=== PATIENT | female | born 1955 | race Caucasian/White ===

== ENCOUNTER → 2017-07-07 | Outpatient (CLI) | payer BC, SELFPAY | PROVIDERS: Visit Provider Nurse Practitioner Family | DX: M43.16 Spondylolisthesis, lumbar region (principal); R20.2 Paresthesia of skin | CPT/HCPCS: 72148; 76376 ==

== ENCOUNTER 2017-08-19 17:00 | Outpatient (RCR) | payer BC, SELFPAY | END 2017-08-19 17:01 | disposition home or self-care (01) | LOC: PT 17:00 | PROVIDERS: PCP Internal Medicine Adolescent Medicine; Visit Provider Neurological Surgery | DX: M43.10 Spondylolisthesis, site unspecified (principal) | CPT/HCPCS: 97010; 97014; 97035; 97110; G0283 ==

== ENCOUNTER → 2018-04-11 13:32 | Outpatient (POV) | payer BC, SELFPAY ==
[2018-04-11 14:02] VITALS: BP 155/88; PULSE 76; RESP 18; O2SAT 98
--- NOTE | 2018-04-12 08:39 | HMH.PMCON ---
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 Patient is done well with injections in the past. I will follow-up with the patient after her injection. The patient is asking for something for nerves prior to her injection. I discussed with her she can talk about this with Dr. Curry. This note was dictated using voice recognition software and may contain errors or omissions HPI - Data of Consult Consult date: 04/11/18 Requesting Physician: Neena Kwon APRN Primary Care Provider: Eran Zhang MD Family Provider: Referral Provider, - Consult Narrative Reason for consult: Back pain History of present illness: Ms. Mccurdy is a 63 year old female since today for consultation in regards to her low back pain. Patient has been seen by Dr. Chowdhury in the past and Dr. Camacho Sher. Patient had an injection by Dr. Tim Bill and had good relief with it. Patient had 90% relief for several months. Patient is continuing to do stretches. Patient present with an MRI showing pathology. Patient's tried and failed chiropractic therapy, physical therapy, anti-inflammatories. It is not on any anticoagulation therapy. 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 Gastrointestinal: no incontinence, normal bowel movements reported Genitourinary: no incontinence Musculoskeletal: back Pain, leg pain Psychiatric: normal mood/ affect Neurological: [denies weakness in extremities], [denies balance issues] Meds Home Medications Medication Instructions Recorded Confirmed Type cholecalciferol (vitamin D3) 2,000 2,000 unit PO DAILY 03/07/18 History unit capsule ibandronate 150 mg tablet mg PO 30 Days #1 03/07/18 History ibuprofen 200 mg capsule 200 mg PO QID PRN 03/07/18 History polyethylene glycol 3350 17 gram 17 g PO DAILY 03/07/18 History oral powder packet varicella-zoster glycoE [id number] mcg IM 1 Days #1 03/07/18 History adj(PF) 50 mcg/0.5 mL IM susp, kit Allergies Allergy/AdvReac Type Severity Reaction Status Date / Time epinephrine Allergy Nervousness, Verified 03/07/18 15:49 [From Xylocaine-Epinephrine] Heart racing lidocaine Allergy Nervousness, Verified 03/07/18 15:49 [From Xylocaine-Epinephrine] Heart racing From CELEXA Allergy Mild NERVOUS/SHA Uncoded 03/07/18 15:18 NESSA EXTREME 5000 TANNA Allergy Unknown NERVOUSNESS Uncoded 03/07/18 15:18 /MELISSA/N/V Objective Vital signs
--- NOTE | 2018-04-12 08:43 | P.CONS_ITS ---
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 Patient is done well with injections in the past. I will follow-up with the patient after her injection. The patient is asking for something for nerves prior to her injection. I discussed with her she can talk about this with Dr. Curry. This note was dictated using voice recognition software and may contain errors or omissions HPI - Data of Consult Consult date: 04/11/18 Requesting Physician: Neena Kwon APRN Primary Care Provider: Eran Zhang MD Family Provider: Referral Provider, - Consult Narrative Reason for consult: Back pain History of present illness: Ms. Mccurdy is a 63 year old female since today for consultation in regards to her low back pain. Patient has been seen by Dr. Chowdhury in the past and Dr. Camacho Sher. Patient had an injection by Dr. Tim Bill and had good relief with it. Patient had 90% relief for several months. Patient is continuing to do stretches. Patient present with an MRI showing pathology. Patient's tried and failed chiropractic therapy, physical therapy, anti-inflammatories. It is not on any anticoagulation therapy. 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 Gastrointestinal: no incontinence, normal bowel movements reported Genitourinary: no incontinence Musculoskeletal: back Pain, leg pain Psychiatric: normal mood/ affect Neurological: [denies weakness in extremities], [denies balance issues] Meds Home Medications Medication Instructions Recorded Confirmed Type cholecalciferol (vitamin D3) 2,000 2,000 unit PO DAILY 03/07/18 History unit capsule ibandronate 150 mg tablet mg PO 30 Days #1 03/07/18 History ibuprofen 200 mg capsule 200 mg PO QID PRN 03/07/18 History polyethylene glycol 3350 17 gram 17 g PO DAILY 03/07/18 History oral powder packet varicella-zoster glycoE [id number] mcg IM 1 Days #1 03/07/18 History
== END ==
PROVIDERS: PCP Internal Medicine Adolescent Medicine; Visit Provider Clinical Nurse Specialist Family Health
DX: M43.16 Spondylolisthesis, lumbar region (principal)
CPT/HCPCS: 99202

== ENCOUNTER → 2018-04-11 14:45 | Outpatient (POV) | payer BC, SELFPAY | PROVIDERS: PCP Internal Medicine Adolescent Medicine; Visit Provider Nurse Practitioner Acute Care | DX: Z00.00 Encounter for general adult medical examination without abnormal findings (principal) ==

== ENCOUNTER → 2018-04-18 09:32 | Outpatient (CLI) | payer BC, SELFPAY ==
--- NOTE | 2018-04-18 09:37 | US_ITS ---
US abdomen limited History:Right upper quadrant pain, epigastric pain, diarrhea Ordering Physician:Akanksha Duval Patient Age: 63 years Comparison: Findings: Pancreas:Unremarkable. No obvious mass or abnormal fluid collection. No ductal dilatation Liver:No focal liver lesions demonstrated. Homogeneous echogenicity. No intrahepatic biliary ductal dilatation evident. There is appropriate directional blood flow within a nondilated portal vein. Right Kidney:Unremarkable. Normal size and echogenicity. No hydronephrosis Gallbladder:No gallstones, gallbladder wall thickening, pericholecystic fluid, or biliary dilatation. Impression:Negative gallbladder/right upper quadrant ultrasound
== END ==
PROVIDERS: PCP Internal Medicine Adolescent Medicine; Visit Provider Nurse Practitioner Acute Care
DX: R10.11 Right upper quadrant pain (principal); R10.13 Epigastric pain
CPT/HCPCS: 76705

== ENCOUNTER → 2018-05-25 06:31 | Outpatient (CLI) | payer BC, SELFPAY ==
--- NOTE | 2018-05-25 06:33 | NM_ITS ---
SPECT MYOCARDIAL PERFUSION SCAN, REST AND STRESS: EXERCISE STRESS: [facility] REVIEW QGS EF AND WALL MOTION EVALUATION: QPS - PERFUSION EVALUATION: HISTORY: Chest pain, SOB, Palpitations, HTN PROCEDURE: Rest imaging performed after administration of9.90 millicuries Tc MIBI. Dose administered at6:40 a.m., with imaging thereafter. Stress imaging was then performed following6 minutes of exercise stress. The patient achieved a heart [id number] with projected heart rate of135 . Resting BP129/70 with stress 170/74. At maximum exercise stress,32.1 millicuries Tc MIBI administered at8:15 a.m. with [id number] minutes thereafter. FINDINGS: Perfusion Evaluation: The single slice spect images as well as the [facility] bull's-eye data summary were reviewed. Wall Motion and Ejection Fraction Evaluation: Gated SPECT review and analysis used to evaluate these features. There is a 75 % left ventricular ejection fraction. There seems to be good wall motion Stress images reveal mildly decreased activity throughout the anterior wall with mild improvement on resting images. Gated images calculated ejection fraction of 75% with normal wall motion. Exercise-induced EKG abnormalities were also present. IMPRESSION: Reversible ischemia throughout the anterior wall. Normal ejection fraction normal wall motion. High risk abnormal stress test because of the anterior wall involvement
--- NOTE | 2018-05-25 06:33 | CA_ITS ---
PROCEDURE: 2-D M-mode and color Doppler study INDICATIONS FOR THE TEST: Chest pain+ COPD Heart Murmur Tobacco Smoking Palpitations+ Fatigue Syncope Edema Hypertension Diabetes Mellitus Rheumatic Fever SOB+TIRADO Obesity Hyperlipidemia Family History HD+ Additional History DIZZINESS PATIENT INFORMATION HEIGHT:63 WEIGHT:174 GENDER: Female B/P:148/86 2-D/M-MODE INTERPRETATION: 2-D MEASUREMENTS OBSERVED VALUES IN CMS Right Ventricular Dimension (RVDd) 2.1 Interventricular Septum (Thickness)(IVsd) 1.4 Left Ventricular Internal Dimensions(LVIDd) 4.6 Left Ventricular Posterior Wall (Thickness)(LVPWd) 0.7 Aortic Root 2.8 Aortic Cusp Separation 1.9 Left Atrial Dimensions (LAD) 3.5 2D 1. Left atrium is mildly enlarged, left ventricle normal size, there is mild concentric left ventricular hypertrophy, visually estimated ejection fraction 55% with no regional wall motion abnormality. 2. The right atrium and right ventricle are mildly intact with normal contractility. 3. The aortic valve is minimally thickened and fibrosed. 4. The mitral and tricuspid valve are grossly normal. 5. The pulmonic valve is poorly visualized. 6. No significant pericardial effusion noted. DOPPLER INTERROGATION: Doppler interrogation of the aortic, mitral and tricuspid valvular presence of mild mitral and tricuspid regurgitation, tricuspid regurgitation jet velocity is inadequate for calculation of the right ventricular systolic pressure, grade 1 diastolic dysfunction seen with tissue Doppler evidence of raised left atrial pressure. CONCLUSION: 1. Mildly enlarged left atrium, normal in size, mild concentric left ventricular hypertrophy, visually estimated ejection fraction 55% with no regional wall motion abnormality, grade 1 diastolic dysfunction seen with tissue Doppler evidence of raised left atrial pressure. 2. Mildly enlarged right ventricle with normal contractility. 3. Mild mitral and tricuspid regurgitation 4. No significant pericardial effusion noted.
--- NOTE | 2018-05-25 07:20 | HMH.ITSHM ---
Current Home Medications as stated by this patient Paolo Mccurdy or account representative. []BUS[place]STON FLOHOPE MIRALAX VITAMIN D
== END ==
PROVIDERS: PCP Internal Medicine Adolescent Medicine; Visit Provider Internal Medicine
DX: R07.89 Other chest pain (principal); R42 Dizziness and giddiness; R00.2 Palpitations; R06.09 Other forms of dyspnea; R60.9 Edema, unspecified; Z82.49 Family history of ischemic heart disease and other diseases of the circulatory system
CPT/HCPCS: 78452; 93017; 93306; A9502

== ENCOUNTER → 2018-06-10 10:33 | Outpatient (CLI) | payer BC, SELFPAY ==
--- NOTE | 2018-06-10 10:35 | NM_ITS ---
NM hepatobiliary wo pharm HISTORY: ITS.REASON: RUQ PAIN ORDERING PHYSICIAN: Akanksha Duval PATIENT AGE: 63 years COMPARISON: 04/18/2018 DOSE: 8.05 mCi technetium Choletec Fatty meal with ensure FINDINGS: Homogeneous activity is present within the hepatic parenchyma. Activity is present in the gallbladder by 15 minutes. Activity is present in the small bowel by 20 minutes. The gallbladder ejection fraction is calculated to be 40% The patient did not report pain or other symptoms during the fatty meal. IMPRESSION: Unremarkable hepatobiliary scan and gallbladder ejection fraction. No evidence of common or cystic duct obstruction with normal gallbladder ejection fraction
--- NOTE | 2018-06-10 11:43 | HMH.ITSHM ---
Current Home Medications as stated by this patient Paolo Mccurdy or special service representative. []BUSPIRONE DICYCLONINE
== END ==
PROVIDERS: PCP Internal Medicine Adolescent Medicine; Visit Provider Nurse Practitioner Acute Care
DX: R10.13 Epigastric pain (principal); R10.11 Right upper quadrant pain
CPT/HCPCS: 78226; A9537

== ENCOUNTER → 2018-07-06 15:34 | Outpatient (CLI) | payer BC, SELFPAY ==
--- NOTE | 2018-07-06 15:35 | MM_ITS ---
MM Dig screening mamm BI w/CAD CAD Screening COMPARISON: Digital mammograms with CAD 06/23/2017 INDICATION: There is a history of breast cancer patient maternal great aunt. TECHNIQUE: Standard CC and MLO images were obtained. R2 CAD reviewed. FINDINGS: The breasts are composed primarily of fat with minimal scattered fiber glandular densities seen throughout each breast. The findings are bilateral and symmetrical. There is no suspicious lesion and there are no suspicious microcalcifications. IMPRESSION: Fibrofatty parenchyma no suspicious lesion seen BI-RADS Category: 1 Negative RECOMMENDED FOLLOW-UP: 1YR - 1 YEAR FOLLOW-UP (A letter has been sent to the patient regarding results of the study.)
== END ==
PROVIDERS: PCP Internal Medicine Adolescent Medicine; Visit Provider Nurse Practitioner Obstetrics & Gynecology
DX: Z12.31 Encounter for screening mammogram for malignant neoplasm of breast (principal)
CPT/HCPCS: 77067

== ENCOUNTER → 2019-07-10 09:34 | Outpatient (CLI) | payer BC, SELFPAY ==
--- NOTE | 2019-07-10 09:34 | MM_ITS ---
PROCEDURE: MM DIG SCREENING MAMM BI W/CAD Patient Age:64Y CLINICAL INDICATION: Routine Screening Mammogram 64-year-old no hormones no new complaints. Family history: Maternal great aunt maternal great grandmother with breast cancer COMPARISON: DMSB DIG MAMM-SCREEN MCKENZIE from 04/18/2013 [facility]MSB DIG MAMM-SCREEN MCKENZIE from 05/22/2014 DMSB DIG MAMM-SCREEN MCKENZIE from 05/23/2015 [facility]B DIG MAMM-SCREEN MCKENZIE from 06/18/2016 DMSB DIG MAMM-SCREEN MCKENZIE W/CAD from 06/23/2017 [facility] MM Dig screening mamm BI w/CAD from 07/06/2018 TECHNIQUE: Standard CC and MLO images were obtained. R2 CAD reviewed. Additional CC nipple profile view left breast included FINDINGS: Minimal residual fibroglandular elements towards the superior breast bilaterally. Moderate diffuse fatty replacement with overall low headache density breast but multiple prior studies are helpful in support stable mildly asymmetric appearance. No new suspicious densities nor dominant mass but no suspicious calcification. CAD computer review highlights no areas of concern either. Bilateral follow-up 1 year adequate IMPRESSION: . Stable bilateral mammogram . Bilateral follow-up 1 year recommended No significant new areas of concern. Low-density breast but BI-RAD Category: 1 Negative FOLLOW-UP: 1YR 1 Year Follow-up (A letter has been sent to the patient regarding results of the study.) Dictated by: Shin Diaz MD 07/10/2019 18:17 Electronically signed by Shin Diaz MD in [place] 07/10/2019 18:17
== END ==
PROVIDERS: PCP Internal Medicine Adolescent Medicine; Visit Provider Nurse Practitioner Obstetrics & Gynecology
DX: Z12.31 Encounter for screening mammogram for malignant neoplasm of breast (principal)
CPT/HCPCS: 77067

== ENCOUNTER → 2020-07-17 16:56 | Outpatient (CLI) | payer BC, SELFPAY ==
--- NOTE | 2020-07-17 16:56 | MM_ITS ---
PROCEDURE: MM DIG SCREENING MAMM BI W/CAD Referring Doctor: Villa Márquez Patient Age:65Y CLINICAL INDICATION: screening xmg no hormones, no new complaints, 64-year-old female Family history-maternal great aunt and maternal great grandmother with breast cancer COMPARISON: MG DMDXUR DIG MAMM-DX UNILATERAL-RT from 06/11/2010 MG DMDXUR DIG MAMM-DX UNILATERAL-RT from 12/23/2010 MG DMSB DIGITAL MAMM-SCREEN BILATERAL from 01/28/2012 MG DMSB DIG MAMM-SCREEN MCKENZIE from 04/18/2013 MG DMSB DIG MAMM-SCREEN MCKENZIE from 05/22/2014 MG DMSB DIG MAMM-SCREEN MCKENZIE from 05/23/2015 MG DMSB DIG MAMM-SCREEN MCKENZIE from 06/18/2016 MG DMSB DIG MAMM-SCREEN MCKENZIE W/CAD from 06/23/2017 MG [facility] MM Dig screening mamm BI w/CAD from 07/06/2018 MG MM DIG SCREENING MAMM BI W/CAD from 07/10/2019 TECHNIQUE: Standard CC and MLO images were obtained. R2 CAD reviewed. Bilateral digital breast tomosynthesis included. FINDINGS: Lower density breast with of generalized fatty replacement and minimal residual fibroglandular elements.. No dominant or suspicious mass, no suspicious calcifications; no significant change since prior studies. Stable very minor minor asymmetry CAD computer review highlights no areas of concern either IMPRESSION: Stable bilateral mammogram with no new areas of concern. Bilateral follow-up 1 year recommended BI-RAD Category: 1 Negative FOLLOW-UP: 1YR 1 Year Follow-up (A letter has been sent to the patient regarding results of the study.) Dictated by: Shin Diaz MD 07/18/2020 15:02 Shin Diaz MD in [place] 07/18/2020 15:02
== END ==
PROVIDERS: PCP Internal Medicine Adolescent Medicine; Visit Provider Nurse Practitioner Obstetrics & Gynecology
DX: Z12.31 Encounter for screening mammogram for malignant neoplasm of breast (principal)
CPT/HCPCS: 77063; 77067

== ENCOUNTER → 2020-11-14 15:30 | Outpatient (POV) | payer BC, SELFPAY ==
[2020-11-14 15:42] VITALS: BP 147/66; PULSE 75; RESP 18; O2SAT 98; BMI 30.9
--- NOTE | 2020-11-18 08:26 | HMH.PAINSOAP ---
[facility] Pain Management SOAP Note Subjective:: Is a pleasant 65-year-old white female who presents today for follow-up. Patient was seen back in 2018 and received an L4-L5 lumbar epidural steroid injection and did well with this she got over 80% relief for up to 3 months. She rates her pain today a 5 out of 10 her pain is beginning to return. We discussed repeating the epidural steroid injection she is agreeable. She is not on any anticoagulation therapy. Most of her pain is in her low back and bilateral lower extremities. ROS General: no recent weight change, no fever, no sleep disturbances Respiratory: no cough, no shortness of air, no recurring pulmonary infections Cardiovascular/Peripheral Vascular: No chest pain, No palpitations, no edema, no shortness of breath. Gastrointestinal: no new onset incontinence, normal bowel movements reported Genitourinary: no new onset incontinence Musculoskeletal: Back pain, leg pain Psychiatric: normal mood/ affect Neurological: [denies new onset weakness in extremities], [denies new onset balance issues] Objective:: Physical Exam General: Alert and oriented x3, no acute distress, pleasant and cooperative, Lungs: Resps E/U, Symmetrical chest expansion, Eyes: PERRL Musculoskeletal: Flexion and extension of lumbar spine somewhat guarded secondary to pain, deep tendon reflexes normal, strength in upper and lower extremities [5/5], antalgic gait noted Neurological: speech clear, 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 Patient has done well with this in the past. I believe that she will do well in the future. I will follow-up with her afterwards reassess her symptoms at that time she has been instructed to call the office if she has any issues prior to her next appointment. Dr. Curry has reviewed this note and agrees with this plan of care. This note was dictated using voice recognition software and may contain errors or omissions [facility] History I have reviewed the patient's past medical history: Yes Medical History: Reports:: Gastroesophageal Reflux Disease(GERD), Hypertension Denies:: Cancer, Diabetes Mellitus Type 1, Diabetes Mellitus Type 2, Internal Pacemaker, Lung Disease, MRSA, Seizures *Have you ever received a pneumonia vaccine?: Yes *Have you received a flu vaccine this season?: Yes Other Medical History: Reports: Arthritis Other Surgeries: Yes: No Previous Surgery, Other (Septoplasty). 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
== END ==
PROVIDERS: PCP Internal Medicine Adolescent Medicine; Visit Provider Clinical Nurse Specialist Family Health
DX: M51.16 Intervertebral disc disorders with radiculopathy, lumbar region (principal)
CPT/HCPCS: 99212; G0463

== ENCOUNTER → 2020-11-26 08:40 | Outpatient (CLI) | payer BC, SELFPAY ==
--- NOTE | 2020-11-26 08:43 | XR_ITS ---
PROCEDURE: XR DEXA AXIAL SKELETON CLINICAL HISTORY: OSTEOPOROSIS COMPARISON: CR BONE3 BONE DENSITOMETRY(HIP:LT SPINE from 02/23/2017 FINDINGS: The right hip BMD is 0.694 with a T-score of -1.4. The left hip BMD is 0.734 with a T-score of -1.0. The lumbar spine BMD is 0.827 with a T-score of -2.0. Previously the lowest density was in spine with a T-score -2.0 IMPRESSION: This patient is considered osteopenic according to the World Health Organization criteria. Bone density is between 10 and 25 percent below young normal. Fracture risk is moderate. Treatment is advised. Based on these results a follow-up exam is recommended in 2 year. Dictated by: Skyler Orta MD 11/27/2020 06:46 Skyler Orta MD in [place] 11/27/2020 06:46
[2020-11-26 09:38] LABS: Basophils # 0.1 K/mm3 (0-0.2); Basophils % 0.9 % (0.1-2.0); Eosinophils # 0.2 K/mm3 (0.0-0.4); Eosinophils % 2.3 % (0.1-12.0); Hematocrit 40.3 % (37.0-47.0); Hemoglobin 13.4 g/dL (12.2-16.2); Lymphocytes % 29.1 % (10-50); Mean Corpuscular HGB Conc 33.3 g/dL (31.8-35.4); Mean Corpuscular Hemoglobin 31.3 pg (27.0-31.2); Mean Platelet Volume 7.9 fl (7.4-10.4); Monocytes # 0.4 K/mm3 (0.1-1.0); Monocytes % 5.5 % (1.7-9.3); Neutrophils # 4.2 K/mm3 (1.8-7.8); Neutrophils % 62.2 % (37.0-80.0); Platelet Count 246 K/mm3 (142-424); Red Blood Count 4.29 M/mm3 (4.20-5.40); Red Cell Distribution Width 13.2 % (11.5-17.5); White Blood Count 6.8 K/mm3 (4.8-10.8)
[2020-11-26 10:12] LABS: Chloride 106 mmol/L (98-107); Sodium 142 mmol/L (136-145)
[2020-11-26 10:14] LABS: Blood Urea Nitrogen 13 mg/dl (7-17)
[2020-11-26 10:15] LABS: Alanine Aminotransferase 29 U/L (12-78); Albumin Level 4.5 g/dl (3.5-5.0); Albumin/Globulin Ratio 1.7 (1.1-1.8); Alkaline Phosphatase 95 U/L (38-126); Aspartate Amino Transferase 30 U/L (14-36); Bilirubin,Total 0.7 mg/dl (0.2-1.3); Calcium 9.7 mg/dl (8.4-10.2); Carbon Dioxide 28 mmol/L (22.0-30.0); Chol/HDL Ratio 4.4 (1-3.5); Cholesterol 260 mg/dl (140-200); Estimated Glomerular Filt Rate 101 ml/min (>60); GFR (African American) 122 ML/MIN (>60); Globulin 2.6 g/dL (1.3-3.2); Glucose 98 mg/dl (74-100); HDL Cholesterol 59 mg/dl (40-60); Total Protein,Serum 7.1 g/dl (6.3-8.2); Triglycerides 149 mg/dl (30-150); VLDL Cholesterol 30 mg/dL (0-40)
[2020-11-26 10:26] LABS: Direct LDL Cholesterol 146.85 mg/dL (100-129)
== END ==
PROVIDERS: Nurse Practitioner Family; PCP Internal Medicine Adolescent Medicine; Visit Provider Internal Medicine Adolescent Medicine
DX: Z00.00 Encounter for general adult medical examination without abnormal findings (principal); Z13.820 Encounter for screening for osteoporosis; Z78.0 Asymptomatic menopausal state
CPT/HCPCS: 36415; 77080; 80053; 80061; 85025

== ENCOUNTER 2020-11-29 10:27 | Day surgery (SDC) | payer BC, SELFPAY ==
[2020-11-29 10:36] VITALS: BP 139/81; PULSE 77; RESP 18; O2SAT 97; BMI 24.0
[2020-11-29 11:00] VITALS: BP 148/85; PULSE 85; RESP 18; O2SAT 98
[2020-11-29 11:05] VITALS: BP 147/78; PULSE 74; RESP 18; O2SAT 98
--- NOTE | 2020-11-29 11:16 | HMH.PMPROC ---
- Procedure Date: 11/29/20 Time: 11:16 Anesthesiologist:: Lico Curry MD Complications:: None Pre-procedure Diagnosis:: Degenerative disc disease of lumbar spine with lumbar radiculopathy symptoms Post-procedure Diagnosis:: Same Indications for Procedure:: Patient is a pleasant 65-year-old white female who we are treating for low back pain with lumbar radiculopathy symptoms. She has done well with previous epidural steroid injection she was 80% better for several months her last injection was couple years ago. Her pain is back now. We will do repeat lumbar epidural steroid injection today to see if this helps with her pain symptoms. Procedure Details:: Informed consent was obtained and the risk and benefits of the procedure was explained to the patient. The patient was taken to the procedure room. The patient was placed prone on the procedure table. The patient was prepped and draped in sterile fashion. C-arm fluoroscopy was used to view the lumbar spine. Skin and subcutaneous tissues were anesthetized using lidocaine. I placed an 18-gauge epidural needle and advanced into the L4-L5 interspace using fluoroscopic guidance and [id number] to air. After confirmation of needle placement in the epidural space with dye I injected 2 mL of lidocaine 1.5% with Depo-Medrol 80 mg. Patient tolerated the procedure well with no complications. Plan and Disposition:: We will follow-up with her in 2 weeks. Will reevaluate her symptoms at that time.
[2020-11-29 11:17] VITALS: BP 130/71; PULSE 66; RESP 20; O2SAT 95
== END 2020-11-29 11:18 | disposition home or self-care (01) ==
LOC: SC.PAINP 10:29
PROVIDERS: PCP Internal Medicine Adolescent Medicine; Visit Provider Anesthesiology
DX: M51.16 Intervertebral disc disorders with radiculopathy, lumbar region (principal); I10 Essential (primary) hypertension; K21.9 Gastro-esophageal reflux disease without esophagitis; M19.90 Unspecified osteoarthritis, unspecified site; E78.5 Hyperlipidemia, unspecified
CPT/HCPCS: 62323; J1040; Q9966

== ENCOUNTER → 2020-12-30 14:34 | Outpatient (POV) | payer BC, SELFPAY ==
[2020-12-30 14:40] VITALS: BP 134/70; PULSE 83; RESP 18; O2SAT 97; BMI 30.9
--- NOTE | 2020-12-30 15:38 | HMH.PAINSOAP ---
[facility] Pain Management SOAP Note Subjective:: Patient is a 65-year-old white female who presents today for follow-up after a lumbar epidural steroid injection. Patient is being treated for degenerative disc disease lumbar spine with lumbar radiculopathy symptoms patient says that she is getting about 70 to 80% relief with the injection, however, she is starting to feels her pain slowly returned. She has a throbbing sensation and a dull ache that is in her low back area. She previously had pain in her shoulders. She says that the pain since the injection in her shoulders has subsided. She is complaining of severe leg pain at bedtime with severe numbness and tingling in her bilateral feet. She has tried gabapentin in the past, approximately 10 years ago. She had severe depression with the medication and as a result had to stop the medicine. She was also doing citalopram which did not give her any relief. Patient has tried Voltaren gel which is giving her some relief. She rates her pain a 4 out of 10 today. Patient says she has had nerve conduction studies for her bilateral leg and foot pain with no definitive diagnosis. She says she has had lab work was negative for low potassium levels. Patient says she would like to undergo a repeat injection before the pain gets severe to her low back. Her previous injection was at L4-L5. She has tried and failed conservative therapies of physical therapy for greater than 6 weeks, along with continued home stretching. She is also tried anti-inflammatories in the past with no significant relief. She continues to use ice and heat therapies. Review of Systems General: No recent weight changes, no fever, no sleep disturbances Respiratory: No cough, no shortness of air, no recurring pulmonary infections Cardiovascular/peripheral vascular: No chest pain, no palpitations, no edema, no shortness of breath Gastrointestinal: No new onset incontinence, normal bowel movements reported Genitourinary: No new onset incontinence Musculoskeletal: Intermittent low back pain?dull throbbing ache, numbness and tingling in bilateral feet Psychiatric: Normal mood/affect Neurological: [Denies weakness in extremities], [denies balance issues] Objective:: Physical exam General: Alert and oriented x3, no acute distress, pleasant and cooperative, [on room air] Lungs: Respirations even and unlabored, symmetrical chest expansion Eyes: PERRL Musculoskeletal: Flexion and extension of [] lumbar spine somewhat guarded secondary to pain, deep tendon reflexes normal, strength in upper and lower extremities [5/5], [abnormal gait noted] Neurological: Speech clear, fitness supervisor equal, no gross sensory deficit Assessment:: Degenerative disc disease lumbar spine with lumbar radiculopathy symptoms, low back pain Plan:: Patient would like to proceed with repeat injection. We will schedule her for a lumbar epidural steroid injection at L4-L5. The patient got significant relief with the last injection between 70 to 80% relief, however, her pain is starting to return. The injection did help with her shoulder pain. We will order the patient Lyrica 50 mg 1 tablet p.o. at bedtime to try for her pain in her bilateral feet and paresthesia in her bilateral feet. We will see her back in the clinic afterwards for reevaluation of her symptoms after her injection. She is not on any anticoagulation therapy. She will continue with home stretching and ice and heat therapies. Risks and benefits of the procedure have been explained to the patient. Patient would like to proceed with the procedure. Risks and benefits of the medication have been explained in detail to the patient. The patient has been advised to consult with his/her primary care provider and pharmacist regarding drug-drug interaction of medications currently prescribed. Patient has been instructed to contact the clinic with any concerns before the next appointment. Dr. Curry has review
== END ==
PROVIDERS: PCP Internal Medicine Adolescent Medicine; Visit Provider Clinical Nurse Specialist Family Health
DX: M51.16 Intervertebral disc disorders with radiculopathy, lumbar region (principal)
CPT/HCPCS: 99212; G0463

== ENCOUNTER → 2021-05-21 18:22 | Outpatient (CLI) | payer OTHER, SELFPAY | PROVIDERS: Visit Provider Nurse Practitioner Family | DX: R30.0 Dysuria (principal); B96.20 Unspecified Escherichia coli [E. coli] as the cause of diseases classified elsewhere | CPT/HCPCS: 87086; 87088; 87186 ==

== ENCOUNTER → 2021-07-21 13:07 | Outpatient (CLI) | payer OTHER, SELFPAY ==
--- NOTE | 2021-07-21 13:08 | MM_ITS ---
PROCEDURE INFORMATION: Exam: MG Bilateral Screening 3D Mammography Exam date and time: 07/21/2021 1:08 PM Age: 66 years old Clinical indication: Encounter for screening mammogram for malignant neoplasm of breast TECHNIQUE: Imaging protocol: Bilateral screening tomosynthesis and 2D mammography including computer-aided detection (CAD) when performed. COMPARISON: 1. MG MM DIG SCREENING MAMM BI W/CAD 07/17/2020 4:58 PM 2. MG MM DIG SCREENING MAMM BI W/CAD 07/10/2019 9:44 AM 3. MG SCBI MM Dig screening mamm BI w/CAD 07/06/2018 3:50 PM FINDINGS: MAMMOGRAPHY: Breast composition: There are scattered areas of fibroglandular density. Mass: No suspicious masses. Architectural distortion: No suspicious distortion. Calcifications: No suspicious calcifications. Asymmetric density: None. Skin thickening: None. Axillary adenopathy: None. IMPRESSION: No mammographic evidence of malignancy. Annual screening is recommended unless otherwise clinically indicated. ASSESSMENT: BI-RADS Category 1: Negative
== END ==
PROVIDERS: PCP Internal Medicine Adolescent Medicine; Visit Provider Obstetrics & Gynecology
DX: Z12.31 Encounter for screening mammogram for malignant neoplasm of breast (principal)
CPT/HCPCS: 77063; 77067

== ENCOUNTER → 2021-07-24 16:38 | Outpatient (CLI) | payer OTHER, SELFPAY | PROVIDERS: PCP Internal Medicine Adolescent Medicine; Visit Provider Nurse Practitioner | DX: U07.1 COVID-19 (principal) | CPT/HCPCS: C9803; U0003; U0005 ==

== ENCOUNTER → 2022-04-18 11:55 | Outpatient (CLI) | payer MEDICARE, SELFPAY | PROVIDERS: PCP Internal Medicine Adolescent Medicine; Visit Provider Ophthalmology | DX: Z01.812 Encounter for preprocedural laboratory examination (principal); Z20.822 Contact with and (suspected) exposure to COVID-19 | CPT/HCPCS: C9803; U0003; U0005 ==

== ENCOUNTER 2022-04-21 06:48 | Day surgery (SDC) | payer MEDICARE, SELFPAY ==
[2022-04-16 11:33] VITALS: BMI 30.9
[2022-04-21] VITALS (7 sets, daily range): BP systolic 105–132; BP diastolic 60–78; PULSE 61–71; RESP 16–18; TEMP 36.2–36.4; O2SAT 94–100
== END 2022-04-21 09:10 | disposition home or self-care (01) ==
PROVIDERS: PCP Internal Medicine Adolescent Medicine; Visit Provider Ophthalmology
DX: H25.812 Combined forms of age-related cataract, left eye (principal)
CPT/HCPCS: 66984; V2632

== ENCOUNTER 2022-05-05 07:36 | Day surgery (SDC) | payer MEDICARE, SELFPAY ==
[2022-04-30 13:32] VITALS: BMI 30.9
[2022-05-05] VITALS (7 sets, daily range): BP systolic 102–142; BP diastolic 60–77; PULSE 60–69; RESP 16–18; TEMP 36.4–36.6; O2SAT 95–100
== END 2022-05-05 10:05 | disposition home or self-care (01) ==
LOC: OR 07:38
PROVIDERS: PCP Internal Medicine Adolescent Medicine; Visit Provider Ophthalmology
DX: H25.813 Combined forms of age-related cataract, bilateral (principal); Z79.899 Other long term (current) drug therapy
CPT/HCPCS: 66984; V2632

== ENCOUNTER → 2022-08-26 15:03 | Outpatient (CLI) | payer MEDICARE, SELFPAY ==
--- NOTE | 2022-08-26 15:09 | MM_ITS ---
PROCEDURE INFORMATION: Exam: MG Bilateral Screening 3D Mammography Exam date and time: 08/26/2022 3:05 PM Age: 67 years old Clinical indication: Screening mammogram TECHNIQUE: Imaging protocol: Bilateral Screening tomosynthesis and 2D mammography including computer-aided detection (CAD) when performed. COMPARISON: 1. MG MM DIG SCREENING MAMM BI W/CAD 07/21/2021 1:10 PM 2. MG MM DIG SCREENING MAMM BI W/CAD 07/17/2020 4:58 PM 3. MG MM DIG SCREENING MAMM BI W/CAD 07/10/2019 9:44 AM 4. MG SCBI MM Dig screening mamm BI w/CAD 07/06/2018 3:50 PM FINDINGS: MAMMOGRAPHY: Breast composition: There are scattered areas of fibroglandular density. Mass: None. Architectural distortion: No new or suspicious architectural distortion. Calcifications: No new or suspicious calcifications are present Asymmetric density: No new or suspicious asymmetric density is present Skin thickening: None. Axillary adenopathy: None. IMPRESSION: No mammographic evidence of malignancy. Recommend annual screening mammography unless otherwise clinically indicated. ASSESSMENT: BI-RADS category 1: Negative
== END ==
PROVIDERS: PCP Internal Medicine Adolescent Medicine; Visit Provider Obstetrics & Gynecology
DX: Z12.31 Encounter for screening mammogram for malignant neoplasm of breast (principal)
CPT/HCPCS: 77063; 77067

== ENCOUNTER → 2022-11-26 15:04 | Outpatient (POV) | payer MEDICARE, SELFPAY ==
[2022-11-26 15:53] VITALS: BP 107/76; PULSE 74; RESP 18; O2SAT 98; BMI 31.8
--- NOTE | 2022-11-26 16:10 | EXP.PAIN.OV ---
HPI Data of Consult Patient: new to practice Consult date: 11/26/22 Requesting Physician: Ita Smith APRN Primary Care Provider: Eran Zhang MD Consult Narrative Reason for consult: Low back pain, bilateral leg pain, bilateral hip pain History of present illness: Ms. Mccurdy is a 67 year old female who presents today as a new patient. She is a referral from Magaly Kirkland's office. Today she rates her pain a 6 out of 10. She states her pain is all in her low back with radiating symptoms to her bilateral hips and legs. Patient does describe this as a constant tightening sensation that is worse with increased activity. She does state that activities such as mopping and sweeping severely aggravate her symptoms. This causes significant difficulty with performing activities of daily living. She denies any specific trauma or injury that initially led to the symptoms. She states it just started 1 day and progressively worsened however she does state that she did gymnastics as a child and may be related to some of this activity. Patient states she was previously a patient of ours approximately 2 years ago. She states she did have epidurals in the past and that they did provide significant improvement lasting several months. Patient has been to a neurosurgeon in the past who stated that surgery would only be a last option and that they were recommending conservative therapies. Patient has tried physical therapy as well and not provided any additional relief. Patient has tried frro-hoe-huoitlv medications such as Tylenol and ibuprofen with no additional relief. Patient does also use heat and ice and topicals with minimal relief. She is not on any scheduled medications. She states she is scheduled to leave for a trip to [place] on December 10 and she would like to see about getting an injection prior to this. Her Josh is [phone]. Its been reviewed and appropriate. CC: Ita Smith APRN [facility] Disclaimer: The information contained in this section may have been updated after the patient was seen, as this information can be updated by other users. Medical History (Updated 11/26/22 @ 16:17 by Ita Smith APRN) GERD (gastroesophageal reflux disease) History of ankylosing spondylitis HLD (hyperlipidemia) Surgical History History of surgery Family History Other Cardiac disease Family history of cancer Social History (Updated 11/26/22 @ 15:54 by Cara Denise RN) Smoking Status: Never smoker alcohol intake: never substance use type: denies use current occupational status: employed and retired Travel in the last 8 weeks: None household members: spouse housing: house current occupation: [employer] current occupational exposures/hazards: No caffeine: Yes Review of Systems Review of Systems Review of systems:: pertinent systems reviewed and negative unless documented below Review of systems (narrative): Review of Systems: General: No recent weight changes, no fever, no sleep disturbances Respiratory: No cough, no shortness of air, no recurring pulmonary infections Cardiovascular/peripheral vascular: No chest pain, no palpitations, no edema, no shortness of breath Gastrointestinal: No new onset incontinence, normal bowel movements reported Genitourinary: No new onset incontinence Musculoskeletal: Low back pain Psychiatric: [Normal mood/affect] Neurological: [Denies weakness in extremities], [denies balance issues] Meds Home Medications and Allergies Home Medications Medication Instructions Recorded Confirmed Type cholecalciferol (vitamin D3) 50 2,000 unit PO DAILY Supplement 03/07/18 11/26/22 History mcg (2,000 unit) capsule acetaminophen 500 mg oral powder 500 mg PO Q6H PRN Pain 12/30/20 11/26/22 History packet (Tylenol Extra Strength) esomeprazole magnesium 20 m
== END ==
PROVIDERS: PCP Internal Medicine Adolescent Medicine; Visit Provider Nurse Practitioner Family
DX: M51.16 Intervertebral disc disorders with radiculopathy, lumbar region (principal); M47.26 Other spondylosis with radiculopathy, lumbar region; M43.10 Spondylolisthesis, site unspecified; M25.551 Pain in right hip; M25.552 Pain in left hip; M48.061 Spinal stenosis, lumbar region without neurogenic claudication; M79.604 Pain in right leg; M79.605 Pain in left leg
CPT/HCPCS: 99202; G0463

== ENCOUNTER 2022-12-08 09:27 | Day surgery (SDC) | payer MEDICARE, SELFPAY ==
[2022-12-08 09:35] VITALS: BP 148/77; PULSE 77; RESP 18; TEMP 36.4; O2SAT 98; BMI 31.8
[2022-12-08 10:01] VITALS: BP 155/72; PULSE 84; RESP 18; O2SAT 97
[2022-12-08 10:02] VITALS: BP 155/72; PULSE 84; RESP 18; O2SAT 97
--- NOTE | 2022-12-08 10:06 | P.PCN_ITS ---
Procedure Date: 12/08/22 Time: 10:00 Anesthesiologist:: Salbador White CRNA Complications:: None Pre-procedure Diagnosis:: Degenerative disc disease lumbar spinal levels. Lumbar radiculopathy Post-procedure Diagnosis:: Same. Indications for Procedure:: Patient is a very pleasant 67-year-old female that comes our clinic today for lumbar epidural steroid injection L5-S1 level. Patient reports having this very same injection several years ago with significant improvement terms of her over all low back pain as well as bilateral hip and a radicular symptoms. Patient describes low back pain as constant, dull, aching. Patient also describes bilateral hip and leg radicular symptoms at times. She rates her pain 6/10 Procedure Details:: Procedure: Lumbar epidural steroid injection under fluoroscopy Informed consent was obtained and the risks and benefits of the procedure were explained to the patient. The patient was taken to the procedure room and noninvasive monitors placed, including noninvasive blood pressure cuff and pulse oximeter. The back was viewed using C-arm Fluoroscopy and prepped using Chloraprep as a cleansing solution and the L5-S1 interspace was palpated. Skin and subcutaneous tissues were anesthetized using lidocaine 1.5% and a 25-gauge needle. After this, an 18-gauge Touhy epidural needle was placed into the L5-S1 interspace and advanced using fluoroscopic guidance and loss of resistance to air until the epidural space was encountered. After confirmation of needle placement in the epidural space, with dye, a solution containing normal saline, 3 mL and Depo-Medrol 80 mg were incrementally injected into the lumbar epidural space. The patient tolerated the procedure well with no complications. The patient was observed in the Pain Clinic and then discharged home neurologically intact. Plan and Disposition:: Patient was discharged without incident.
[2022-12-08 10:07] VITALS: BP 150/92; PULSE 78; RESP 18; O2SAT 98
== END 2022-12-08 10:07 | disposition home or self-care (01) ==
PROVIDERS: PCP Internal Medicine Adolescent Medicine; Visit Provider Nurse Anesthetist, Certified Registered
DX: M51.16 Intervertebral disc disorders with radiculopathy, lumbar region (principal)
CPT/HCPCS: 62323; J1040

== ENCOUNTER → 2023-03-26 13:18 | Outpatient (CLI) | payer MEDICARE, SELFPAY | PROVIDERS: PCP Internal Medicine Adolescent Medicine; Visit Provider Nurse Practitioner Family | DX: R06.83 Snoring; G47.33 Obstructive sleep apnea (adult) (pediatric) | CPT/HCPCS: G0399 ==

== ENCOUNTER 2023-08-27 13:17 | Outpatient (CLI) | payer MEDICARE, SELFPAY ==
--- NOTE | 2023-08-27 13:21 | MM_ITS ---
PROCEDURE INFORMATION: Exam: MG Bilateral Screening 3D Mammography Exam date and time: 08/27/2023 1:18 PM Age: 68 years old Clinical indication: Screening examination TECHNIQUE: Imaging protocol: Bilateral Screening tomosynthesis and 2D mammography including computer-aided detection (CAD) when performed. COMPARISON: 1. MG MM DIG SCREENING MAMM BI W/CAD 08/26/2022 3:05 PM 2. MG MM DIG SCREENING MAMM BI W/CAD 07/21/2021 1:10 PM FINDINGS: MAMMOGRAPHY: Breast composition: There are scattered areas of fibroglandular density. Mass: None. Architectural distortion: None. Calcifications: No suspicious calcifications. Asymmetric density: None. Skin thickening: None. Axillary adenopathy: None. IMPRESSION: No mammographic evidence of malignancy. Annual screening is recommended unless otherwise clinically indicated. ASSESSMENT: BI-RADS Category 1: Negative
== END 2023-08-27 23:59 ==
PROVIDERS: PCP Internal Medicine Adolescent Medicine; Visit Provider Nurse Practitioner Family
DX: Z12.31 Encounter for screening mammogram for malignant neoplasm of breast (principal)
CPT/HCPCS: 77063; 77067

== ENCOUNTER 2024-06-12 09:30 | Day surgery (SDC) | payer MEDICARE, SELFPAY ==
[2024-06-06 15:24] VITALS: BMI 30.9
[2024-06-12] MEDS: LACTATED RINGERS 1000ML 1,000 ML 25 ML IV (09:48)
[2024-06-12 09:57] VITALS: BP 139/86; PULSE 78; RESP 18; TEMP 36.4; O2SAT 96
--- NOTE | 2024-06-12 10:26 | P.PNANES_ITS ---
[facility] Disclaimer: The information contained in this section may have been updated after the patient was seen, as this information can be updated by other users. Medical History History of ankylosing spondylitis GERD (gastroesophageal reflux disease) HLD (hyperlipidemia) Surgical History History of surgery Family History Other Cardiac disease Family history of cancer Social History Smoking Status: Never smoker alcohol intake: never substance use type: denies use current occupational status: employed and retired Travel in the last 8 weeks: None household members: spouse housing: house current occupation: [employer] current occupational exposures/hazards: No caffeine: Yes [facility] Anesthesia Checklist Patient Identification Patient Identification: Verbal (Name & ) Structural Data Admitted From: Home Planned Operative Procedure/s: colonoscopy Consent for Planned Operative Procedure(s) Verified: Yes NPO Status Verified Time NPO: 00:00 Additional verifications Anesthesia Reactions: No Hx Blood Transfusions: No Blood Transfusion Reaction: No Airway Assessment Mallampati Score:: Class II C-Spine Mobility Assessed: Yes TMJ Mobility Assessed: Yes Dentition: Good Dentition Neurological Assessment Level of Consciousness: Awake, Alert and Appropriate Anesthesia Plan Anesthesia Risk discussed: Yes Anesthesia Plan: Verified ASA Class: II Anesthesia Type: MAC
[2024-06-12 11:04] VITALS: O2SAT 100
--- NOTE | 2024-06-12 11:06 | P.HP_ITS ---
History of Present Illness *Admission Date: 06/12/24 *Reason for visit:: Personal history of adenomatous colon polyps *History of present illness: Mrs. Mccurdy is a 69-year-old female who is here for surveillance colonoscopy secondary to personal history of adenomatous polyps. The examination is deemed medically necessary for colonoscopy. The patient has been seen, interviewed and examined prior to the procedure by both myself and the anesthesia provider. [facility] Disclaimer: The information contained in this section may have been updated after the patient was seen, as this information can be updated by other users. Medical History (Updated 06/12/24 @ 11:07 by Stew Rodriguez II, MD) History of ankylosing spondylitis GERD (gastroesophageal reflux disease) HLD (hyperlipidemia) Surgical History History of surgery Family History Other Cardiac disease Family history of cancer Social History Smoking Status: Never smoker alcohol intake: never substance use type: denies use current occupational status: employed and retired Travel in the last 8 weeks: None household members: spouse housing: house current occupation: [employer] current occupational exposures/hazards: No caffeine: Yes Other Medical History Have you received the Flu Vaccine for this season: No Have you received the Pneumonia Vaccine: No Review of Systems Review of Systems Review of systems (narrative): Negative *Cardiovascular Comments: Negative *Gastrointestinal Comments: Negative *Genitourinary Comments: Negative *Musculoskeletal Comments: Negative *Neurologic Comments: Negative Meds Home Medications and Allergies Home Medications ?Medication ?Instructions ?Recorded ?Confirmed ?Type cholecalciferol (vitamin D3) 50 2,000 unit PO DAILY Supplement 03/07/18 06/06/24 History mcg (2,000 unit) capsule acetaminophen 500 mg oral powder 500 mg PO Q6H PRN Pain 12/30/20 06/06/24 History packet (Tylenol Extra Strength) esomeprazole magnesium 20 mg 20 mg PO DAILY GERD 12/30/20 06/06/24 History capsule,delayed release ibuprofen 200 mg capsule 200 mg PO Q6H PRN Pain 12/30/20 06/06/24 History polyethylene glycol 3350 17 17 g PO DAILY laxative 12/30/20 06/06/24 History gram/dose oral powder (Miralax) azelastine 137 mcg (0.1 %) nasal 1 spray intranasal BID allergies 04/16/22 06/06/24 History spray rosuvastatin 20 mg tablet (Crestor) 5 mg PO DAILY Cholesterol 04/16/22 06/06/24 History ondansetron 4 mg disintegrating 4 mg PO DAILY nausea and vomiting 06/01/24 06/06/24 Rx tablet #10 tabs calcium polycarbophil 625 mg tablet 1,250 mg PO DAILY 06/12/24 06/12/24 History New Prescriptions to Start Prescriptions: Allergies Allergy/AdvReac Type Severity Reaction Status Date / Time citalopram (From [employer]) Allergy Mild Irritable Verified 06/12/24 09:55 stimulants Allergy Intermediate Nausea Uncoded 12/30/21 10:47 Exam Data for Last 24 hours Vital signs and Labs for Last 24 Hours: Temp Pulse Resp BP Pulse Ox O2 Del Method O2 Flow Rate 97.5 F L 78 18 139/86 96 Nasal Cannula 5 06/12/24 09:57 06/12/24 09:57 06/12/24 09:57 06/12/24 09:57 06/12/24 09:57 06/12/24 11:04 06/12/24 11:04 *Routine HEENT Exam Head: Present normocephalic Eye: Present EOMI and PERRL ENT: Present mucous membranes moist *Routine Neck Exam Neck: Present supple *Routine Respiratory Exam Respiratory: Present CTA bilaterally *Routine Cardiovascular Exam Cardiovascular: Present RRR *Routine Abdominal Exam Abdominal: Present soft and normoactive bowel sounds; Absent tenderness *Routine Rectal Exam Rectal:: deferred *Routine Genitalia Exam Genitalia:: deferred *Routine Extremities Exam Extremities: Absent cyanosis, clubbing or edema *Routine Skin Exam Skin: Present warm; Absent rash *Routine Neurological Exam Neurological: Present alert and oriented X3 Assessment and Plan *Assessment and plan (1) Personal history of adenomatous and serrated colon polyps: Status: Acute Category: Medical Code(s): Z86.0101 - Personal history of adenomatous and serrated colon polyps Plan A/P: 1. Personal history of adenomatous colon polyps is the preprocedural diagnosis. The patient will be anesthetized/sedated using MAC sedation. The patient has been seen and examined. Cardiac and lung assessment prior to the examination is stable. Proceed with planned surveillance colonoscopy
--- NOTE | 2024-06-12 11:08 | P.PCN_ITS ---
[facility] Procedure Note Date: 06/12/24 Time: 11:23 Procedure Note:: Colonoscopy Procedure Report: Colonoscopy with cold snare polypectomy Endoscopist: Stew Rodriguez II, MD Referring physician: Eran Zhang M.D. Date of Procedure: June 12, 2024 Equipment: Olympus 190 variable stiffness pediatric colonoscope Sedation: MAC sedation Indication: Mrs. Mccurdy is a 69-year-old female who is here for follow-up surveillance colonoscopy secondary to a personal history of adenomatous colon polyps. She did have a colonoscopy in May 2019 and had 2 ascending polyps (tubular adenomas x 2) removed. She does have chronic longstanding constipation which has been intractable. She is now on MiraLAX 2 capfuls every morning and sometimes 1 capful in the evening. She takes Perdiem a couple of times weekly. She does get bloating and some lower abdominal discomfort. She is on an over- the-counter digestive enzyme. She reports no rectal bleeding or weight loss. She does state that her maternal uncle had colon cancer. Procedure: Prior to the procedure, a history and physical exam was performed, and patient's medications and allergies were reviewed. The risks, benefits and alternatives of the sedation and procedure were discussed with the patient. All questions were answered and informed consent was obtained. The patient was brought to the procedure room. Patient identification and proposed procedure were verified by the physician and the nurse. The patient was placed in a left lateral decubitus position and the scope was passed under direct vision. Throughout the procedure, the patient's blood pressure, pulse, and oxygen saturations were monitored continuously. The colonoscopy was accomplished without difficulty. The patient tolerated the procedure well. Findings: On digital rectal examination there was normal rectal tone. There were no external hemorrhoids. The colonoscope was introduced through the anal canal to the rectum and advanced to the cecum. The ileocecal valve and appendiceal orifice were identified. The scope was advanced a short distance into the ileum which appeared grossly normal. The scope was then withdrawn into the colon. There was a single 4 mm polyp in the ascending colon removed via cold snare polypectomy. The remaining cecum, ascending and transverse colon and mucosa were grossly normal. There were scattered diverticuli throughout the descending and sigmoid colon (LEFT colon). The rectum itself was normal. Upon retroflexion within the rectum there were grade 1-2 internal hemorrhoids. The preparation was excellent throughout with Somers Preparation Score of 9. The cecal time was 11 minutes. Impression: 1. Diminutive ascending colon polyp 2. Left-sided diverticulosis 3. Grade 1-2 internal hemorrhoids Plan: I will follow-up the polyp histology and recommend repeat surveillance colonoscopy again in 7 years if the polyp is adenomatous. I would add fiber bulk and consider switching from MiraLAX to Linzess by mouth every morning. I do strongly suspect outlet dysfunction constipation which is often termed pelvic floor dyssynergia. Slow transit constipation refers to slowed movement of contents through the digestive tract and this type of constipation responds very well to most laxatives. Outlet dysfunction, which makes up 50% of those with constipation, refers to an issue with the actual elimination mechanism of stool. The diagnosis of outlet dysfunction constipation is often made in those patients with constipation that respond poorly or not at all to standard laxatives such as osmotics (MiraLAX, Linzess, Trulance), fiber supplements, stimulant laxatives, diet and fluid intake. Up to 50% of patients with chronic constipation have pelvic floor dysfunction (PFD, or dyssynergia). This condition is characterized by impaired coordination between pelvic floor muscle (e.g., puborectalis) relaxation and weakness of the defecatory mechanism which is necessary for normal defecation and bowel evacuation. Defecatory function is a delicate balance between the nerves and muscles. The nerves that arise from the sacral spine are very closely tied to bowel/rectal evacuation. This sacral nervous system allows you to recognize when your rectum is full and allows you to correctly contract muscles to allow for your rectum to evacuate fully. When this balance is upset there is incorrect communication between the nervous system and defecatory muscles (i.e. neuromuscular). Unfortunately, pelvic floor dysfunction is not widely recognized as a possible cause of chronic constipation. As a result, many patients with medically refractory constipation do not receive optimal therapies that enable them to recover normal bowel habits. When mechanical, anatomic, and disease- and diet-related causes of constipation have been ruled out, clinical suspicion should be raised to the possibility that pelvic floor dysfunction is causing or contributing to constipation. The biggest mainstay of treatment for pelvic floor dysfunction includes retraining the pelvic floor muscles with biofeedback physical therapy. Most reviews conclude that more than 70% of adult patients complaining of pelvic floor dyssynergia are likely to benefit from biofeedback training (to completion) and so this is the treatment of choice for the problem. In some large tertiary centers of excellence (i.e. [facility] and [facility]), a larger array of additional diagnostic tests are performed included anorectal manometry and electromyography, barium defecography, water-filled balloon expulsion from the rectum and colonic transit studies with radiopaque markers are often utilized to assess severity. Most of this testing is not regionally available and most feel it is not feasible especially in the setting of failed agents and laxatives. I am going to refer her for pelvic floor physical therapy to assist and help with this ongoing problem.
[2024-06-12 11:24] VITALS: BP 81/51; PULSE 70; RESP 18; TEMP 36.6; O2SAT 94
[2024-06-12 11:34] VITALS: BP 110/67; PULSE 82; RESP 18; O2SAT 98
[2024-06-12 11:44] VITALS: BP 123/42; PULSE 78; RESP 18; O2SAT 98
[2024-06-12 12:11] VITALS: BP 136/73; PULSE 73; RESP 18; O2SAT 98
== END 2024-06-12 12:12 | disposition home or self-care (01) ==
PROVIDERS: PCP Nurse Practitioner Family; Visit Provider Internal Medicine Gastroenterology
PROC: (CPT 45385; principal; 2024-06-12 11:00)
DX: K59.04 Chronic idiopathic constipation (principal); K63.5 Polyp of colon; K57.30 Diverticulosis of large intestine without perforation or abscess without bleeding; K64.8 Other hemorrhoids; Z86.0101 Personal history of adenomatous and serrated colon polyps; Z80.0 Family history of malignant neoplasm of digestive organs
CPT/HCPCS: 45385; 88305; J7120

== ENCOUNTER 2024-09-05 09:35 | Outpatient (CLI) | payer MEDICARE, SELFPAY ==
--- NOTE | 2024-09-05 09:39 | XR_ITS ---
FINAL REPORT TECHNIQUE: Bone mineral density was calculated of the lumbar spine and hip. CLINICAL HISTORY: SCREENING COMPARISON: 11/26/2020 FINDINGS: Using L1-4, the bone mineral density of the spine is 0.835 g/cm2, corresponding to T-score of -1.9. Using the left hip, the bone mineral density of the femoral neck is 0.695 g/cm2, corresponding to a T-score of -1.4. Using the right hip, the bone mineral density of the femoral neck is 0.707 g/cm?, corresponding to a T-score of -1.3. NOTE: T-score: Standard deviation compared with peak bone mass of young adult mean. *Following the recommendations of the International Society of Bone densitometry, classification of hip BMD is based on the lower of two T-scores; total hip or femoral neck. IMPRESSION: Diminished bone mineral density of the lumbar spine and bilateral hips consistent with osteopenia. Reviewed, Interpreted and Dictated by Everett Shin MD Transcribed by [facility] Authenticated and [facility]
--- NOTE | 2024-09-05 09:39 | MM_ITS ---
PROCEDURE INFORMATION: Exam: MG Bilateral Screening 3D Mammography Exam date and time: 09/05/2024 9:56 AM Age: 69 years old Clinical indication: Screening examination TECHNIQUE: Imaging protocol: Bilateral Screening tomosynthesis and 2D mammography including computer-aided detection (CAD) when performed. COMPARISON: 1. MG MM DIG SCREENING MAMM BI W/CAD 08/27/2023 1:18 PM 2. MG MM DIG SCREENING MAMM BI W/CAD 08/26/2022 3:05 PM FINDINGS: MAMMOGRAPHY: Breast composition: The breasts are almost entirely fatty. Mass: None. Architectural distortion: None. Calcifications: No suspicious calcifications. Asymmetric density: None. Skin thickening: None. Axillary adenopathy: None. IMPRESSION: No mammographic evidence of malignancy. Annual screening is recommended unless otherwise clinically indicated. ASSESSMENT: BI-RADS Category 1: Negative.
== END 2024-09-05 23:59 | disposition home or self-care (01) ==
LOC: RAD 09:36
PROVIDERS: PCP Nurse Practitioner Family; Visit Provider Nurse Practitioner Family
DX: Z12.31 Encounter for screening mammogram for malignant neoplasm of breast (principal); Z78.0 Asymptomatic menopausal state
CPT/HCPCS: 77063; 77067; 77080